=== PATIENT | male | born 1955 | race Caucasian/White ===

== ENCOUNTER → 2017-03-23 | Outpatient (CLI) | payer BC ==
[~2017-03-23] VITALS: Ht 167.6 cm; Wt 85.8 kg
[~2017-03-23] MED LIST: ASPIRIN 81M81 MG/TA2 PO; BUSPAR DIVIDOSE15 MG PO; CELEXA 20MG20 MG/TAB PO; FISH OIL 1000MG1 CAP PO; LOPRESSOR 550 MG/TAB PO; NORCO 325 MG-51 TAB PO; SYNTHROID0.088 MG/T PO
[2017-03-23 13:50] VITALS: BP 157/91; PULSE 61
[2017-03-23 15:10] VITALS: BP 155/90; PULSE 56
== END ==
LOC: COL.RAD 13:30
DX: M54.2 Cervicalgia (principal); M43.10 Spondylolisthesis, site unspecified
CPT/HCPCS: J1100

== ENCOUNTER → 2017-06-22 | Outpatient (CLI) | payer BC ==
[~2017-06-22] VITALS: Ht 167.6 cm; Wt 88.0 kg
[2017-06-22 08:56] VITALS: BP 146/80; PULSE 58
[2017-06-22 09:54] VITALS: BP 136/79; PULSE 50
== END ==
LOC: COL.RAD 08:43
DX: M50.323 Other cervical disc degeneration at C6-C7 level (principal)
CPT/HCPCS: J1100

== ENCOUNTER → 2017-08-31 | Outpatient (CLI) | payer BC ==
[~2017-08-31] VITALS: Ht 167.6 cm; Wt 83.6 kg
[2017-08-31 10:42] VITALS: BP 162/96; PULSE 58
[2017-08-31 12:00] VITALS: BP 162/95; PULSE 57
== END ==
LOC: COL.RAD 09:18
DX: M46.92 Unspecified inflammatory spondylopathy, cervical region (principal)
CPT/HCPCS: J1100

== ENCOUNTER → 2018-04-01 | Outpatient (CLI) | payer BC ==
[2005-04-12 12:45] VITALS: TEMP 97.4
== END ==
LOC: COL.RAD 11:48
DX: M48.02 Spinal stenosis, cervical region (principal); M50.30 Other cervical disc degeneration, unspecified cervical region; G95.19 Other vascular myelopathies; S13.180A Subluxation of C7/T1 cervical vertebrae, initial encounter

== ENCOUNTER 2018-10-01 15:00 | Outpatient (RCR) | payer MEDICARE, OTHER ==
[2005-04-12 12:45] VITALS: TEMP 97.4
== END 2018-10-04 10:30 | disposition home or self-care (01) ==
LOC: WSPT 15:00
DX: M40.202 Unspecified kyphosis, cervical region (principal); M43.23 Fusion of spine, cervicothoracic region; M47.812 Spondylosis without myelopathy or radiculopathy, cervical region; M48.02 Spinal stenosis, cervical region; T14.8XXA Other injury of unspecified body region, initial encounter

== ENCOUNTER 2019-02-19 09:30 | Outpatient (RCR) | payer MEDICARE, OTHER | END 2019-04-04 10:49 | disposition home or self-care (01) | LOC: WSC 09:30 | DX: M40.202 Unspecified kyphosis, cervical region (principal); M47.812 Spondylosis without myelopathy or radiculopathy, cervical region; M43.23 Fusion of spine, cervicothoracic region; M54.12 Radiculopathy, cervical region; Z87.891 Personal history of nicotine dependence; M48.02 Spinal stenosis, cervical region ==

== ENCOUNTER 2019-04-07 06:03 | Day surgery (SDC) | payer MEDICARE, OTHER ==
[~2019-04-07] VITALS: Ht 172.7 cm; Wt 77.8 kg
[2019-04-07 06:30] VITALS: BP 142/76; PULSE 48; TEMP 97.9
[2019-04-07] MEDS ORDERED: NEURONTIN100 MG/CAP PO (06:39)
[2019-04-07] MEDS ORDERED: I-VITE LUTEIN1 TAB PO (06:40)
[2019-04-07] MEDS ORDERED: OMEGA-3 1000 MG1 CAP PO (06:42)
--- NOTE | 2019-04-07 06:44 | NUR ---
IS AT BEDSIDE.
--- NOTE | 2019-04-07 06:44 | NUR ---
TO TAD AT 0605- CALL LIGHT IN REACH
[2019-04-07 07:50] VITALS: BP 113/84; PULSE 48; TEMP 97.8
--- NOTE | 2019-04-07 07:50 | NUR ---
Patient arrives back to [facility] drowsy. Patient ambulates from cart to chair with assist x1 and without any difficulties or complications. Patient monitor applied, vitals stable. Patient's spouse at bedside.
--- NOTE | 2019-04-07 08:00 | NUR ---
Dr Alves into see patient at this time to go over results.
[2019-04-07 08:05] VITALS: BP 116/81; PULSE 49
--- NOTE | 2019-04-07 08:15 | NUR ---
Patient tolerates muffin and coffee without any nausea. Denies pain. Reports he is ready to go home. Vitals stable.
[2019-04-07 08:20] VITALS: BP 126/73; PULSE 45
--- NOTE | 2019-04-07 08:20 | NUR ---
Dismissal instructions gone over with patient and patient's spouse. Both verbalize understanding and all questions answered.
--- NOTE | 2019-04-07 08:35 | NUR ---
Patient discharged to patient enterance via wheelchair with patient's spouse and daughter. All leave thanking staff for services.
== END 2019-04-07 08:35 | disposition home or self-care (01) ==
LOC: SDCO 06:03
DX: Z12.11 Encounter for screening for malignant neoplasm of colon (principal); K63.5 Polyp of colon; G47.33 Obstructive sleep apnea (adult) (pediatric); F41.9 Anxiety disorder, unspecified; F32.9 Major depressive disorder, single episode, unspecified; Z79.82 Long term (current) use of aspirin
CPT/HCPCS: J2704; J7120

== ENCOUNTER 2019-10-25 02:06 | Emergency (ER) | payer MEDICARE, OTHER ==
[~2019-10-25] VITALS: Ht 167.6 cm; Wt 77.3 kg
[~2019-10-25 02:06] MED LIST changes: +I-VITE LUTEIN1 TAB PO; +NEURONTIN100 MG/CAP PO; +OMEGA-3 1000 MG1 CAP PO
[2019-10-25] MEDS ORDERED: PERCOCET 325 MG1 TA2 PO (02:58)
[2019-10-25 03:30] VITALS: BP 152/85; PULSE 47; TEMP 97.9
== END 2019-10-25 03:28 | disposition home or self-care (01) ==
LOC: COL.ER 02:06
DX: M54.5 Low back pain (principal); Z79.82 Long term (current) use of aspirin; Z87.39 Personal history of other diseases of the musculoskeletal system and connective tissue

== ENCOUNTER → 2019-12-02 | Outpatient (CLI) | payer MEDICARE, OTHER ==
[~2019-12-02] MED LIST changes: +PERCOCET 325 MG1 TA2 PO
== END ==
LOC: MHCPAIN 14:03
DX: M47.817 Spondylosis without myelopathy or radiculopathy, lumbosacral region (principal); M54.5 Low back pain; M53.3 Sacrococcygeal disorders, not elsewhere classified; G89.29 Other chronic pain; M54.16 Radiculopathy, lumbar region
CPT/HCPCS: G0463

== ENCOUNTER → 2019-12-11 | Outpatient (CLI) | payer MEDICARE, OTHER | LOC: MHCPAIN 10:23 | DX: M47.817 Spondylosis without myelopathy or radiculopathy, lumbosacral region (principal); M54.5 Low back pain; M54.16 Radiculopathy, lumbar region | CPT/HCPCS: J1100; Q9967 ==

== ENCOUNTER → 2019-12-24 | Outpatient (CLI) | payer MEDICARE, OTHER | LOC: MHCPAIN 10:01 | DX: M47.817 Spondylosis without myelopathy or radiculopathy, lumbosacral region (principal); M54.5 Low back pain; M53.3 Sacrococcygeal disorders, not elsewhere classified; G89.29 Other chronic pain; M54.16 Radiculopathy, lumbar region | CPT/HCPCS: G0463 ==

== ENCOUNTER → 2020-01-01 | Outpatient (CLI) | payer MEDICARE, OTHER | LOC: MHCPAIN 09:22 | DX: M47.817 Spondylosis without myelopathy or radiculopathy, lumbosacral region (principal); M54.16 Radiculopathy, lumbar region | CPT/HCPCS: J1100; Q9967 ==

== ENCOUNTER → 2020-01-21 | Outpatient (CLI) | payer MEDICARE, OTHER | LOC: MHCPAIN 09:57 | DX: M47.817 Spondylosis without myelopathy or radiculopathy, lumbosacral region (principal); M54.5 Low back pain; M53.3 Sacrococcygeal disorders, not elsewhere classified; G89.29 Other chronic pain | CPT/HCPCS: G0463 ==